=== PATIENT | male | born 1945 | race Caucasian/White ===

== ENCOUNTER 2017-02-24 20:21 | Observation (INO) ==
--- NOTE | 2017-02-24 20:32 | Emergency Department Note ---
Disposition Clinical Impression: Failure to thrive, Frequent falls Disposition: Admitted As Inpatient Condition: Good Time of Disposition: 23:55 Fall HPI - General Chief Complaint: ED Fall Stated Complaint: Freq Falls Time Seen by Provider: 02/24/17 20:25 Source: patient, EMS Mode of arrival: EMS Limitations: age Nursing Notes Reviewed: Yes Vital Signs Reviewed: Yes - History of Present Illness HPI Narrative: Patient presents to ED via EMS from home with the complaint of multiple falls. Patient is a relatively poor historian but is able to state that he has been falling more frequently than usual over the past couple of days. States that he has fallen 3 times today. Has had his head, unknown loss of consciousness. Complaining of posterior headache, neck pain, lower thoracic and upper lumbar pain. He states that he is supposed to use a walker, but he does not like using it, but he will now. Also complaining of right-sided rib pain. No vomiting or other associated abdominal pain. Noncontributory for medical history - Related Data Home Medications Medication Instructions Recorded Confirmed Albuterol Sulfate [Albuterol 2 puff IH Q6HR 03/07/15 03/07/15 Inhaler] Aspirin 325 mg PO DAILY PRN 03/07/15 03/07/15 Atorvastatin [Lipitor] 40 mg PO DAILY 03/07/15 03/07/15 Budesonide/Formoterol Fumarate 2 puff IH BID 03/07/15 03/07/15 [Symbicort 160-4.5 Mcg Inhaler] Gabapentin [Neurontin] 100 mg PO TID 03/07/15 03/07/15 Metoprolol XL (24 HR) Succ [Toprol 25 mg PO DAILY 03/07/15 03/07/15 XL] Naproxen [Naprosyn] 500 mg PO BID PRN 03/07/15 03/07/15 Omeprazole [PriLOSEC] 20 mg PO DAILY 03/07/15 03/07/15 Tamsulosin [Flomax] 0.4 mg PO DAILY 03/07/15 03/07/15 Tiotropium [Spiriva] 1 - 2 puff IH DAILY 03/07/15 03/07/15 Previous Rx's Medication Instructions Recorded Cefuroxime PO [Ceftin] 500 mg PO Q12HR 5 Days 03/10/15 HYDROcodone/Acet 5/325 mg [[place] 1 tab PO TID PRN #20 tablet 03/10/15 5-325 mg] Ipratropium/Albuterol Neb [Duoneb] 3 ml IH [id number] inhsol 03/10/15 Fluticasone Propionate Nasal 2 spray NS DAILY #1 bottle 07/12/15 [Flonase] Amoxicillin 875 mg PO BID #20 tablet 09/10/15 DiphenhydraMINE [Benadryl] 25 mg PO Q8HR #21 capsule 12/02/15 methylPREDNISolone [Medrol] 4 mg PO DAILY 6 Days 12/02/15 Bacitracin OINT [Ak-Tracin] 1 appl TP BID #56 g 02/02/16 traMADol [Ultram] 50 mg PO TID #10 tablet 03/27/16 Albuterol Sulfate [Albuterol 1 - 2 puff IH Q6HR #1 hfa.aer.ad 08/10/16 Inhaler] Azithromycin [Azithromycin 6-Tab 250 mg PO PER PKG DI #6 tab 08/10/16 Pack] Allergies Allergy/AdvReac Type Severity Reaction Status Date / Time No Known Allergies Allergy Verified 02/07/17 15:47 Constitutional: Reports: weakness (general). Denies: fever Cardiovascular: Reports: chest pain (2 days ago, gone now) Respiratory: Denies: dyspnea Gastrointestinal: Denies: abdominal pain, nausea, vomiting, diarrhea Musculoskeletal: Reports: as per HPI, back pain Integumentary: Denies: rash Neurological: Reports: headache, weakness (general ), abnormal gait (chronic ) Fall PMH - Past Medical History Medical history: Reports: CHF, COPD, coronary artery disease, GERD, hyperlipidemia, hypertension, peripheral artery disease, other Surgical history: Reports: angioplasty/stent Psychiatric history: Reports: no psych history - Social History Smoking Status: Former smoker Alcohol use: Reports: none Drug use: Reports: none Physical Exam - General Limitations: no limitations General appearance: alert, in no apparent distress - Head Head exam: atraumatic, normocephalic, normal inspection, other (Cervical kyphosis, no obvious hematoma, no raccoon eyes or Diaz sign) - Eye Eye exam: Present: normal appearance, PERRL, EOMI - ENT ENT exam: normal exam, normal oropharynx, mucous membranes moist - Neck Neck exam: Present: tenderness (midline, diffuse) - Chest Chest inspection: Present: symmetric chest wall rise, tenderness (Right lateral ribs). Absent: normal inspection - Respiratory Respiratory exam: Present: normal lung sounds bilaterally - Cardiovascular Cardiovascular exam: Present: regular rate, normal rhythm, normal heart sounds - Abdominal Exam Abdominal exam: Present: soft, Non-Tender. Absent: tenderness, distention, guarding, rebound - Extremities Exam Extremities exam: Present: normal inspection, full ROM. Absent: tenderness, pedal edema - Expanded Lower Extremity Exam Hip/Pelvis exam: Present: normal inspection, full ROM Upper leg exam: Present: normal inspection, full ROM Knee exam: Present: normal inspection, full ROM Lower leg exam: Present: normal inspection, full ROM Ankle exam: Present: normal inspection, full ROM Foot/toe exam: Present: normal inspection, full ROM Neurovascular/Tendon exam: Absent: motor deficit, sensory deficit, tendon deficit - Back Exam Back exam: Present: tenderness (lower T and diffuse L spine) - Neurological Exam Neurological exam: Present: alert, oriented X3 - Skin Skin exam: Present: warm, dry, intact, normal color Course Course Narrative: 71-year-old male with frequent falls. Having had a C-spine pain, lower thoracic and lumbar pain. All 7 rib pain. We will image. Awaiting family arrival. For further history. Unknown blood thinners. Stable currently. - Reevaluation(s) Reevaluation #1: CTs are normal. Family is now present and states they are concerned that he may end up injuring himself due to the frequency of his falls. He has had a rehabilitation previously which had good effect. We will admit him overnight for social work consult and potential rehabilitation placement. Vital Signs Temperature 98.0 F 02/24/17 20:25 Pulse Rate 87 02/24/17 20:25 Respiratory Rate 14 02/24/17 20:25 Blood Pressure 145/63 02/24/17 20:25 O2 Sat by Pulse Oximetry 95 02/24/17 20:25 Temperature 98.0 F 02/24/17 20:25 Pulse Rate 75 02/24/17 23:25 Respiratory Rate 16 02/24/17 23:25 Blood Pressure 103/64 02/24/17 23:25 O2 Sat by Pulse Oximetry 94 02/24/17 23:25 Oxygen Delivery Oxygen Delivery Room Air Fall - Medical Records Medical records reviewed: Yes I reviewed the patient's medical records. - Lab Data Lab results reviewed: Yes I reviewed the patient's lab results. Result diagrams: 02/24/17 20:37 02/24/17 20:37 Lab Results 02/24/17 02/24/17 02/24/17 Range/Units 20:37 20:37 20:37 WBC 13.0 H (4.3-11.1) K/mcL RBC 4.37 (4.19-5.50) M/mcL Hgb 12.8 L (12.9-16.9) g/dL Hct 39.7 (37.5-50.1) % MCV 90.8 (83.0-100.0) fL MCH 29.3 (28.0-33.3) pg MCHC 32.2 (31.6-35.5) g/dL RDW 13.9 (11.5-14.5) % Plt Count 371 (140-400) K/mcL MPV 9.5 (9.4-12.4) fL Immature Gran % 0.4 (0-4) % Seg Neutrophils % 72.3 % Lymphocytes % 13.1 % Monocytes % 8.9 % Eosinophils % 4.8 % Basophils % 0.5 % Neutrophils # 9.4 H (1.6-8.9) K/mcL Lymphocytes # 1.7 (0.6-4.6) K/mcL Monocytes # 1.2 (0.0-1.3) K/mcL Eosinophils # 0.6 (0.0-0.6) K/mcL Basophils # 0.1 (0.0-0.2) K/mcL PT 11.5 (9.4-12.1) Seconds INR 1.1 APTT 28.5 (26.0-36.0) Seconds Sodium 146 H (136-145) mEq/L Potassium 4.0 (3.5-4.5) mEq/L Chloride 107 (98-109) mEq/L Carbon Dioxide 30 H (19-29) mEq/L BUN 29 H (8-26) mg/dL Creatinine 1.23 (0.72-1.25) mg/dL Est GFR ( Amer) > 60 (> 60) Est GFR (Non-Af Amer) 58 L (> 60) BUN/Creatinine Ratio 24 (6-26) Glucose 97 (70-99) mg/dL Calculated Osmolality 308 H (280-300) Calcium 9.5 (8.6-10.8) mg/dL Total Bilirubin 0.4 (0.2-1.2) mg/dL AST 21 (5-34) Units/L ALT 15 (0-55) Units/L Alkaline Phosphatase 105 (38-126) Units/L Troponin I (0-0.03) ng/mL Serum Total Protein 6.7 (6.0-8.3) g/dL Albumin 3.5 (3.5-5.0) g/dL Globulin 3.2 (2.4-3.5) g/dL Albumin/Globulin Ratio 1.1 (1.1-2.2) Urine Color (Yellow) Urine Clarity (Clear) Urine pH (5.0-8.0) pH Units Ur Specific [place] (1.010-1.025) Urine Protein (Neg-Trace) mg/dL Urine Glucose (UA) (Normal) mg/dL Urine Ketones (Negative) mg/dL Urine Blood (Negative) Urine Nitrite (Negative) Urine Bilirubin (Negative) Urine Urobilinogen (Normal) mg/dL Ur Leukocyte Esterase (Negative) Ur Culture Indicated? (NO) 02/24/17 02/24/17 Range/Units 20:37 22:56 WBC (4.3-11.1) K/mcL RBC (4.19-5.50) M/mcL Hgb (12.9-16.9) g/dL Hct (37.5-50.1) % MCV (83.0-100.0) fL MCH (28.0-33.3) pg MCHC (31.6-35.5) g/dL RDW (11.5-14.5) % Plt Count (140-400) K/mcL MPV (9.4-12.4) fL Immature Gran % (0-4) % Seg Neutrophils % % Lymphocytes % % Monocytes % % Eosinophils % % Basophils % % Neutrophils # (1.6-8.9) K/mcL Lymphocytes # (0.6-4.6) K/mcL Monocytes # (0.0-1.3) K/mcL Eosinophils # (0.0-0.6) K/mcL Basophils # (0.0-0.2) K/mcL PT (9.4-12.1) Seconds INR APTT (26.0-36.0) Seconds Sodium (136-145) mEq/L Potassium (3.5-4.5) mEq/L Chloride (98-109) mEq/L Carbon Dioxide (19-29) mEq/L BUN (8-26) mg/dL Creatinine (0.72-1.25) mg/dL Est GFR ( Amer) (> 60) Est GFR (Non-Af Amer) (> 60) BUN/Creatinine Ratio (6-26) Glucose (70-99) mg/dL Calculated Osmolality (280-300) Calcium (8.6-10.8) mg/dL Total Bilirubin (0.2-1.2) mg/dL AST (5-34) Units/L ALT (0-55) Units/L Alkaline Phosphatase (38-126) Units/L Troponin I 0.01 (0-0.03) ng/mL Serum Total Protein (6.0-8.3) g/dL Albumin (3.5-5.0) g/dL Globulin (2.4-3.5) g/dL Albumin/Globulin Ratio (1.1-2.2) Urine Color Yellow (Yellow) Urine Clarity Clear (Clear) Urine pH 6.0 (5.0-8.0) pH Units Ur Specific [place] 1.020 (1.010-1.025) Urine Protein Negative (Neg-Trace) mg/dL Urine Glucose (UA) Normal (Normal) mg/dL Urine Ketones Negative (Negative) mg/dL Urine Blood Negative (Negative) Urine Nitrite Negative (Negative) Urine Bilirubin Negative (Negative) Urine Urobilinogen Normal (Normal) mg/dL Ur Leukocyte Esterase Negative (Negative) Ur Culture Indicated? NO (NO) - Radiology Data Radiology results reviewed: Yes I reviewed the patient's radiology results. Cervical Spine CT 02/24/17 20:27 IMPRESSION: No acute abnormality of the cervical spine. Limited evaluation secondary to nonstandard positioning because of the patient's severe kyphosis. D/ / Griffin Hinds MD / Griffin Hinds MD Interpreting Provider: Griffin Hinds MD Head CT 02/24/17 20:27 IMPRESSION: No acute intracranial abnormality. D/ / Linwood Dowell / Linwood Dowell Interpreting Provider: Linwood Dowell Lumbar Spine CT 02/24/17 20:27 IMPRESSION: 1. No acute abnormality detected within the lumbar spine. D/ / Griffin Hinds MD / Griffin Hinds MD Interpreting Provider: Griffin Hinds MD Ribs w/Chest X-Ray 02/24/17 20:27 IMPRESSION: 1. No definite acute abnormality detected. D/ / Griffin Hinds MD / Griffin Hinds MD Interpreting Provider: Griffin Hinds MD Thoracic Spine CT 02/24/17 20:27 IMPRESSION: No definite evidence for acute fracture. D/ / Andrei Pak MD / Andrei Pak MD Interpreting Provider: Andrei Pak MD - EKG Data EKG attestation: Yes I reviewed and interpreted this EKG. EKG results narrative: Sinus rhythm, rate 77, SC interval 148, QRS 86, QTC 395, normal axis, no ischemic changes S.B.A.R. - S.B.A.R. Situation: Demographics, MOA Background: Presenting Complaint, Relevant PMH, Meds, & Allergies Assessment: Vital Signs, Course and respsone to treatment, Exam Concerns, Patient/Family Expectation, Pertinant Lab Results, Outstanding Labs Recommendation: Recommendation based on pending studies, treatments, or consults S.B.A.R. Report Given to: Dr. Pee Cortez Repor Time: 23:56 Attestation Statement - Attestation Attestation: I personally interviewed and examined this patient and my medical decision- making was reviewed with the Resident Physician, Dr. Redd. I agree with the documented findings, disposition and treatment plan as described except to the extent set forth below. Patient is a 71-year-old white male who is brought into us for evaluation of frequent falls. Patient reports that he lives at home with 3 other and his family and states that he is supposed to ambulate using a walker or his wheelchair but states that he "prefers to walk". Patient with an unsteady gait and this tends to cause him to experience frequent falls. Patient states he fell at least 3 times today and is unclear whether or not he may have lost consciousness during one of these episodes as some of them were unwitnessed. Patient also complaining of some neck pain back pain as well as right rib pain. Patient here is awake alert and oriented to person and place. Patient denies any chest pain, no shortness of breath, no diaphoresis, no nausea vomiting or reported fluid losses. Patient denies any dizziness or symptoms preceding the fall. I agree with patient's physical exam findings as documented. Patient was sent for CT imaging to rule out any injuries related to the fall. All of his imaging was within normal limits. Labs including urinalysis was also negative. Family arrived during his ED course and also expressed concern about these frequent falls, stating that he has been through rehabilitation before which did seem to help significantly. We will admit the patient for further evaluation for frequent falls as well as psych social worker consultation and physical therapy input. Patient remains hemodynamically stable at this time and agrees to admission. Case discussed with hospitalist to admit the patient for further eval and treatment.
[2017-02-24 20:45] LABS: Basophils # 0.1 K/mcL (0.0-0.2); Basophils % 0.5 %; Eosinophils # 0.6 K/mcL (0.0-0.6); Eosinophils % 4.8 %; Hematocrit 39.7 % (37.5-50.1); Hemoglobin 12.8 g/dL (12.9-16.9); Immature Granulocytes % 0.4 % (0-4); Lymphocytes # 1.7 K/mcL (0.6-4.6); Lymphocytes % 13.1 %; Mean Corpuscular HGB Conc 32.2 g/dL (31.6-35.5); Mean Corpuscular Hemoglobin 29.3 pg (28.0-33.3); Mean Corpuscular Volume 90.8 fL (83.0-100.0); Mean Platelet Volume 9.5 fL (9.4-12.4); Monocytes # 1.2 K/mcL (0.0-1.3); Monocytes % 8.9 %; Neutrophils # 9.4 K/mcL (1.6-8.9); Platelet Count 371 K/mcL (140-400); Red Blood Count 4.37 M/mcL (4.19-5.50); Red Cell Distribution Width 13.9 % (11.5-14.5); Segmented Neutrophils % 72.3 %
[2017-02-24 20:50] LABS: INR 1.1; Prothrombin Time 11.5 Seconds (9.4-12.1)
[2017-02-24 20:53] LABS: Activated Partial Thrombo Time 28.5 Seconds (26.0-36.0)
[2017-02-24 21:00] LABS: Alanine Aminotransferase 15 Units/L (0-55); Albumin 3.5 g/dL (3.5-5.0); Albumin/Globulin Ratio 1.1 (1.1-2.2); Alkaline Phosphatase 105 Units/L (38-126); Aspartate Amino Transferase 21 Units/L (5-34); BUN/Creatinine Ratio 24 (6-26); Bilirubin,Total 0.4 mg/dL (0.2-1.2); Blood Urea Nitrogen 29 mg/dL (8-26); Calcium 9.5 mg/dL (8.6-10.8); Carbon Dioxide 30 mEq/L (19-29); Chloride 107 mEq/L (98-109); Globulin 3.2 g/dL (2.4-3.5); Glucose 97 mg/dL (70-99); Osmolality,Calculated 308 (280-300); Sodium 146 mEq/L (136-145); Total Protein 6.7 g/dL (6.0-8.3); eGFR For African Americans > 60 (> 60); eGFR For Non-African Americans 58 (> 60)
[2017-02-24 23:05] LABS: Bilirubin,Urine Negative (Negative); Blood,Urine Negative (Negative); Clarity,Urine Clear (Clear); Color,Urine Yellow (Yellow); Glucose,Urine (UA) Normal (Normal); Ketones,Urine Negative (Negative); Leukocyte Esterase,Urine Negative (Negative); Nitrite,Urine Negative (Negative); Protein,Urine Negative (Neg-Trace); Urobilinogen,Urine Normal (Normal)
[2017-02-25] MEDS ORDERED: Naloxone 0.4 MG/ML INJ IVP PRN (00:06)
[2017-02-25 01:28] LABS: Basophils # 0.1 K/mcL (0.0-0.2); Basophils % 0.5 %; Eosinophils # 0.8 K/mcL (0.0-0.6); Eosinophils % 5.6 %; Hematocrit 39.6 % (37.5-50.1); Hemoglobin 12.7 g/dL (12.9-16.9); Immature Granulocytes % 0.3 % (0-4); Lymphocytes # 1.8 K/mcL (0.6-4.6); Lymphocytes % 13.1 %; Mean Corpuscular HGB Conc 32.1 g/dL (31.6-35.5); Mean Corpuscular Hemoglobin 29.4 pg (28.0-33.3); Mean Corpuscular Volume 91.7 fL (83.0-100.0); Mean Platelet Volume 9.7 fL (9.4-12.4); Monocytes # 1.2 K/mcL (0.0-1.3); Monocytes % 9.2 %; Neutrophils # 9.5 K/mcL (1.6-8.9); Platelet Count 354 K/mcL (140-400); Red Blood Count 4.32 M/mcL (4.19-5.50); Red Cell Distribution Width 13.9 % (11.5-14.5); Segmented Neutrophils % 71.3 %
--- NOTE | 2017-02-25 01:28 | Internal Med History&Physical ---
Date of Encounter: 02/25/17 Time of Encounter: 01:00 Assessment and Plan (1) Frequent falls Current visit: Yes Status: Acute Patient with recurrent falls. Concern for presyncope. We will check orthostatics. Also check carotid Dopplers and 2-D echocardiogram. Physical therapy. May need placement to skilled rehabilitation or home health. Moderate risk for complications. (2) COPD (chronic obstructive pulmonary disease) Current visit: Yes Status: Chronic Continue bronchodilators and O2 supplementation. Currently not in acute exacerbation. Qualifiers: COPD type: chronic bronchitis Chronic bronchitis type: unspecified Qualified Code(s): J42 - Unspecified chronic bronchitis (3) Hypertension Current visit: Yes Status: Chronic Monitor blood pressure. Continue home medications. Qualifiers: Hypertension type: essential hypertension Qualified Code(s): I10 - Essential (primary) hypertension (4) Coronary artery disease Current visit: Yes Status: Chronic No chest pain at this time. Continue home medications Qualifiers: Coronary Disease-Associated Artery/Lesion type: eek artery [place] vs. transplanted heart: eek heart Associated angina: without angina Qualified Code(s): I25.10 - Atherosclerotic heart disease of eek coronary artery without angina pectoris Internal Medicine - H&P: HPI Chief complaint: Recurrent falls Admitted From: Emergency Dept Plans for Post Hospital Care: Transfer Custodial Facility History of present illness: Mr. Fernandes is a 71 year old male patient with a history of coronary artery disease, peripheral artery disease, hypertension, congestive heart failure, COPD who was brought to the ED with complaints of multiple falls over the past couple of days. Patient apparently had fallen 3 times yesterday. Unclear if he had any loss of consciousness. Presently, the patient complains of pain in his back and along his bilateral lower ribs. He says initially he fell on his back and injured himself. He denies any nausea or vomiting. No recent hospitalization. Denies any chest pain or shortness of breath. Patient had been seen in the ER twice before in the past couple of months for similar complaints. No blurred vision. No focal weakness or numbness. No recent medication changes. Of note, the patient is supposed to use a walker but he does not use it so far. This could be contributing to his recurrent falls. Past Med Surg Social Fam HX - Past Medical History Source: old records reviewed Medical history: CHF, COPD, coronary artery disease, GERD, hyperlipidemia, hypertension, peripheral artery disease, other Psychiatric history: no psych history - Past Surgical History Surgical History: angioplasty/stent - Social History Smoking Status: Former smoker Smokeless Tobacco Status: No Alcohol use: none Drug use: none - Family History Sister History Unknown: Yes Adopted: No Living Status: Hx Family Cancer: Yes Internal Medicine - H&P: Meds Albuterol Sulfate [Albuterol Inhaler] 2 puff IH Q6HR 03/07/15 [History] Aspirin 325 mg PO DAILY PRN 03/07/15 [History] Atorvastatin [Lipitor] 40 mg PO DAILY 03/07/15 [History] Budesonide/Formoterol Fumarate [Symbicort 160-4.5 Mcg Inhaler] 2 puff IH BID 09/20 [History] Gabapentin [Neurontin] 100 mg PO TID 03/07/15 [History] Metoprolol XL (24 HR) Succ [Toprol XL] 25 mg PO DAILY 03/07/15 [History] Naproxen [Naprosyn] 500 mg PO BID PRN 03/07/15 [History] Omeprazole [PriLOSEC] 20 mg PO DAILY 03/07/15 [History] Tamsulosin [Flomax] 0.4 mg PO DAILY 03/07/15 [History] Tiotropium [Spiriva] 1 - 2 puff IH DAILY 03/07/15 [History] Cefuroxime PO [Ceftin] 500 mg PO Q12HR 5 Days 03/10/15 [Rx] HYDROcodone/Acet 5/325 mg [[place] 5-325 mg] 1 tab PO TID PRN #20 tablet 03/10/15 [Rx] Ipratropium/Albuterol Neb [Duoneb] 3 ml IH [id number] inhsol 03/10/15 [Rx] Fluticasone Propionate Nasal [Flonase] 2 spray NS DAILY #1 bottle 07/12/15 [Rx] Amoxicillin 875 mg PO BID #20 tablet 09/10/15 [Rx] DiphenhydraMINE [Benadryl] 25 mg PO Q8HR #21 capsule 12/02/15 [Rx] methylPREDNISolone [Medrol] 4 mg PO DAILY 6 Days 12/02/15 [Rx] Bacitracin OINT [Ak-Tracin] 1 appl TP BID #56 g 02/02/16 [Rx] traMADol [Ultram] 50 mg PO TID #10 tablet 03/27/16 [Rx] Albuterol Sulfate [Albuterol Inhaler] 1 - 2 puff IH Q6HR #1 hfa.aer.ad 08/10/16 [Rx] Azithromycin [Azithromycin 6-Tab Pack] 250 mg PO PER PKG DI #6 tab 08/10/16 [Rx] Allergies No Known Allergies Allergy (Verified 02/07/17 15:47) All Systems PM: A 10-system review of systems was performed and is negative for pertinent findings except as documented above in the HPI. - Constitutional Constitutional: falls, no chills, no fever(s), no night sweats - EENT Eyes: no change in vision, no discharge, no pain, no photophobia Ears: no ear discharge, no ear pain, no tinnitus Nose, mouth and throat: no dysphagia, no nasal discharge, no neck pain, no sore throat - Cardiovascular Cardiovascular ROS IM: no chest pain, no diaphoresis, no dyspnea, no lightheadedness, no palpitations, no syncope - Respiratory Respiratory: no cough, no dyspnea, no wheezing, no excessive phlegm production - Gastrointestinal Gastrointestinal: no abdominal pain, no diarrhea, no hematemesis, no hematochezia, no melena, no nausea, no vomiting - Musculoskeletal Musculoskeletal ROS IM: no numbness, no tingling - Integumentary Integumentary IM: no rash, no unusual bruising - Neurological Neurological ROS: no confusion, no convulsions, no focal weakness, no numbness, no tingling, no tremor(s) - Hematologic/Lymphatic Hematologic/Lymphatic: no easy bruising - Constitutional Vitals: Temp Pulse Resp BP Pulse Ox 98.0 F 75 18 119/60 96 02/24/17 20:25 02/24/17 23:25 02/25/17 00:12 02/25/17 00:12 02/25/17 01:00 General appearance: Present: cooperative, A&O X 2, answers questions appropriately - Eye Eye exam: Present: EOMI, PERRL, conjuntiva pink, sclera anicteric - Neck Neck exam general surgery: Present: supple, trachea midline. Absent: lymphadenopathy - Respiratory Respiratory exam: Present: chest wall tenderness (In the right and left lateral lower rib region), CTAB. Absent: accessory muscle use, rales, rhonchi, wheezes - Cardiovascular Cardiovascular exam: Present: RRR, +S1, +S2, systolic murmur. Absent: diastolic murmur, gallop, rubs - GI/Abdominal GI/Abdominal exam: Present: normal bowel sounds, soft, no peritoneal signs. Absent: distended, tenderness - Extremities Exam Extremities exam: Present: warm, radial pulses palpable and symetrical. Absent : calf tenderness, cyanotic, pedal edema - Neurological Exam Neurological exam: Present: alert, CN II-XII intact, no focal deficits, strengths equal and symetr throughout. Absent: facial droop, speech deficit - Skin Skin exam: Present: dry, intact Additional comments: Ecchymosis noted on right upper back over the lower rib region Internal Med - H&P Results - Labs CBC & Chem 7: 02/24/17 20:37 02/24/17 20:37 - EKG Data -: EKG Interpreted by Myself EKG shows normal: sinus rhythm - EKG Data Interpretation IM: normal EKG - Impressions Impressions Cervical Spine CT 02/24/17 20:27 IMPRESSION: No acute abnormality of the cervical spine. Limited evaluation secondary to nonstandard positioning because of the patient's severe kyphosis. D/ / Griffin Hinds MD / Griffin Hinds MD Interpreting Provider: Griffin Hinds MD Head CT 02/24/17 20:27 IMPRESSION: No acute intracranial abnormality. D/ / Linwood Dowell / Linwood Dowell Interpreting Provider: Linwood Dowell Lumbar Spine CT 02/24/17 20:27 IMPRESSION: 1. No acute abnormality detected within the lumbar spine. D/ / Griffin Hinds MD / Griffin Hinds MD Interpreting Provider: Griffin Hinds MD Ribs w/Chest X-Ray 02/24/17 20:27 IMPRESSION: 1. No definite acute abnormality detected. D/ / Griffin Hinds MD / Griffin Hinds MD Interpreting Provider: Griffin Hinds MD Thoracic Spine CT 02/24/17 20:27 IMPRESSION: No definite evidence for acute fracture. D/ / Andrei Pak MD / Andrei Pak MD Interpreting Provider: Andrei Pak MD
[2017-02-25 01:42] LABS: BUN/Creatinine Ratio 27 (6-26); Blood Urea Nitrogen 27 mg/dL (8-26); Calcium 9.2 mg/dL (8.6-10.8); Carbon Dioxide 32 mEq/L (19-29); Chloride 106 mEq/L (98-109); Glucose 93 mg/dL (70-99); Osmolality,Calculated 301 (280-300); Potassium 3.5 mEq/L (3.5-4.5); Sodium 143 mEq/L (136-145); eGFR For African Americans > 60 (> 60); eGFR For Non-African Americans > 60 (> 60)
[2017-02-25] MEDS ORDERED: Acetaminophen 325 MG TABLET PO PRN (01:47)
[2017-02-25] MEDS ORDERED: Ipratropium/Albuterol Neb 3 ML IH PRN (01:47)
[2017-02-25] MEDS ORDERED: *HR* HYDROcodone/Acet 5/325 mg TABLET PO PRN (01:48)
[2017-02-25] MEDS ORDERED: 0.9 % Sodium Chloride 1,000 ML IVC SCH (02:00)
[2017-02-25] MEDS: *HR* Heparin 5,000 UNIT/ML VIAL SQ SCH ×2 (04:55→17:14)
--- NOTE | 2017-02-25 18:33 | Internal Med Progress Note ---
Date of Encounter: 02/25/17 Time of Encounter: 18:31 - Assessment and plan (1) Frequent falls Current Visit: Yes Status: Acute (2) COPD (chronic obstructive pulmonary disease) Current Visit: Yes Status: Chronic Qualifiers: COPD type: chronic bronchitis Chronic bronchitis type: unspecified Qualified Code(s): J42 - Unspecified chronic bronchitis (3) Coronary artery disease Current Visit: Yes Status: Chronic Qualifiers: Coronary Disease-Associated Artery/Lesion type: [place] artery [place] vs. transplanted heart: [place] heart Associated angina: without angina Qualified Code(s): I25.10 - Atherosclerotic heart disease of [place] coronary artery without angina pectoris (4) Hypertension Current Visit: Yes Status: Chronic Qualifiers: Hypertension type: essential hypertension Qualified Code(s): I10 - Essential (primary) hypertension - Subjective Interval history: Mr. Gregorio Fernandes is a 71-year-old male who looks much older than his age. He came in due to multiple falls at home and he had non-contrast CT head holistic spine and it did show any fractures on neurologically significant dislocation. Apparently he has been having this problem for a while and did a few years back he had detailed workup including MRI of the brain and ultrasound of the carotid and echocardiogram is side of the test. None were proven, occlusive. Echo showed an EF of 50% and MRI brain showed diminished diamond matter. However considering his age it could be related to age-related loss of white matter. He does not have any classical symptoms of normal. Pressure hydrocephalus however he says his legs give up and he denies any headache or dizziness or visual changes. Patient has been seen by a semiconductor packages tester in the past and had Holter monitor. He plans to go to skilled nursing. - Constitutional Vitals: Temp Pulse Resp BP Pulse Ox 97.6 F 72 18 150/74 97 02/25/17 14:37 02/25/17 14:37 02/25/17 14:37 02/25/17 14:37 02/25/17 14:37 General appearance: Present: cooperative, A&O X 2, answers questions appropriately - Head Head exam: Present: atraumatic, normocephalic - Eye Eye exam: Present: PERRL, conjuntiva pink, sclera anicteric Pupils: Present: PERRL - Neck Neck exam general surgery: Present: supple, trachea midline. Absent: lymphadenopathy - Respiratory Respiratory exam: Present: CTAB. Absent: accessory muscle use, rales, rhonchi, wheezes - Cardiovascular Cardiovascular exam: Present: RRR, +S1, +S2. Absent: diastolic murmur, gallop, rubs, systolic murmur - GI/Abdominal GI/Abdominal exam: Present: normal bowel sounds, soft, no peritoneal signs. Absent: distended, tenderness - Extremities Exam Extremities exam: Present: warm, radial pulses palpable and symetrical. Absent : calf tenderness, cyanotic, pedal edema - Neurological Exam Neurological exam: Present: CN II-XII intact, oriented X3, no focal deficits. Absent: pronater drift, facial droop, speech deficit Additional comments: No pronator drift plantars downward bilaterally gait deferred as physical therapy to assess him - Skin Skin exam: Present: dry, intact Internal Medicine: Result - Labs CBC & Chem 7: 02/25/17 01:14 02/25/17 01:14 Labs: Short CBC 02/25/17 Range/Units 01:14 WBC 13.3 H (4.3-11.1) K/mcL Hgb 12.7 L (12.9-16.9) g/dL Hct 39.6 (37.5-50.1) % Plt Count 354 (140-400) K/mcL Neutrophils # 9.5 H (1.6-8.9) K/mcL BMP 02/25/17 01:14 Sodium 143 Potassium 3.5 Chloride 106 Carbon Dioxide 32 H BUN 27 H Creatinine 1.00 Glucose 93 Calcium 9.2 - ABG Interpretation ABG results: PT/INR, D-dimer PT 11.5 Seconds (9.4-12.1) 02/24/17 20:37 Consult Discharge Plan - Plan Referrals: Juan Cortes MD [Primary Care Provider] -
[2017-02-26 01:14] LABS: Basophils % 0.7 %; Eosinophils % 8.8 %; Hemoglobin 11.4 g/dL (12.9-16.9); Immature Granulocytes % 0.2 % (0-4); Lymphocytes # 1.9 K/mcL (0.6-4.6); Lymphocytes % 20.2 %; Mean Corpuscular HGB Conc 32.6 g/dL (31.6-35.5); Mean Corpuscular Volume 92.1 fL (83.0-100.0); Mean Platelet Volume 9.8 fL (9.4-12.4); Monocytes % 9.2 %; Neutrophils # 5.6 K/mcL (1.6-8.9); Platelet Count 322 K/mcL (140-400); Red Cell Distribution Width 14.2 % (11.5-14.5); Segmented Neutrophils % 60.9 %
[2017-02-26 01:15] LABS: Basophils # 0.1 K/mcL (0.0-0.2); Eosinophils # 0.8 K/mcL (0.0-0.6); Monocytes # 0.9 K/mcL (0.0-1.3)
[2017-02-26 01:32] LABS: Alanine Aminotransferase 14 Units/L (0-55); Albumin 2.8 g/dL (3.5-5.0); Alkaline Phosphatase 88 Units/L (38-126); Aspartate Amino Transferase 19 Units/L (5-34); BUN/Creatinine Ratio 22 (6-26); Bilirubin,Total 0.2 mg/dL (0.2-1.2); Blood Urea Nitrogen 24 mg/dL (8-26); Calcium 8.6 mg/dL (8.6-10.8); Carbon Dioxide 28 mEq/L (19-29); Chloride 109 mEq/L (98-109); Globulin 2.7 g/dL (2.4-3.5); Glucose 95 mg/dL (70-99); Osmolality,Calculated 298 (280-300); Potassium 3.9 mEq/L (3.5-4.5); Sodium 142 mEq/L (136-145); Total Protein 5.5 g/dL (6.0-8.3); eGFR For African Americans > 60 (> 60); eGFR For Non-African Americans > 60 (> 60)
[2017-02-26] MEDS: *HR* Heparin 5,000 UNIT/ML VIAL SQ SCH ×2 (05:25→18:01)
--- NOTE | 2017-02-26 12:08 | Carotid Imaging Report ---
Carotid Duplex Patient Name:Gregorio Fernandes Order Number:[id number] Procedure Date:02/25/2017 Date:4Age:71 yrs Gender:Male Lt BP:101 / 63 mmHg Rt.BP:101 / 68 mmHgHeart Rate: Location:[facility] Room #: [facility] Etl Bi Developer:Valeria Marni Referring MD:Cosme Glasgow MD medical record retrieval specialist:Juan Cortes MD Reading MD:Neville Soler MD , FACS Primary Indications:Presyncope Risk Factors Yes/No Hx of CAD/PTCA Yes Impressions: Findings: Bilateral carotid systems are essentially normal. Recommendations: After imaging the patient returned to their room. Findings Carotid Duplex: Flowers scale imaging combined with Doppler flow analysis suggests normal findings bilaterally. Right: The right proximal common carotid artery has a PSV of 80 cm/s and a EDV of 17 cm/s. The right mid common carotid artery has a PSV of 84 cm/s and a EDV of 20 cm/s. The right distal common carotid artery has a PSV of 89 cm/s and a EDV of 29 cm/s. The right bifurcation has a PSV of 46 cm/s and a EDV of 2 cm/s. The right proximal internal carotid artery has a PSV of 96 cm/s and a EDV of 18 cm/s. The right mid internal carotid artery has a PSV of 83 cm/s and a EDV of 28 cm/s. The right distal internal carotid artery has a PSV of 80 cm/s and a EDV of 31 cm/s. The right eca has a PSV of 112 cm/s and a EDV of 11 cm/s. The right vertebral artery has a PSV of 46 cm/s and a EDV of 10 cm/s. Left: The left proximal common carotid artery has a PSV of 84 cm/s and a EDV of 18 cm/s. The left mid common carotid artery has a PSV of 96 cm/s and a EDV of 25 cm/s. The left distal common carotid artery has a PSV of 92 cm/s and a EDV of 20 cm/s. The left bifurcation has a PSV of 73 cm/s and a EDV of 18 cm/s. The left proximal internal carotid artery has a PSV of 69 cm/s and a EDV of 23 cm/s. The left mid internal carotid artery has a PSV of 85 cm/s and a EDV of 28 cm/s. The left distal internal carotid artery has a PSV of 99 cm/s and a EDV of 37 cm/s. The left eca has a PSV of 98 cm/s and a EDV of 9 cm/s. The left vertebral artery has a PSV of 67 cm/s and a EDV of 24 cm/s. Prior Study: No prior study available for comparison. Carotid Results Right PSV EDV Assessment Proximal CCA 80 17 Normal Mid CCA 84 20 Normal Distal CCA 89 29 Normal Bifurcation 46 2 Normal Proximal ICA 96 18 Normal Mid ICA 83 28 Normal Distal ICA 80 31 Normal ECA 112 11 Normal Vertebral Artery 46 10 Normal Left PSV EDV Assessment Proximal CCA 84 18 Normal Mid CCA 96 25 Normal Distal CCA 92 20 Normal Bifurcation 73 18 Normal Proximal ICA 69 23 Normal Mid ICA 85 28 Normal Distal ICA 99 37 Normal ECA 98 9 Normal Vertebral Artery 67 24 Normal Ratio's Right ICA/CCA Ratio: 1.14 ICA/CCA Values: 96/84 Left ICA/CCA Ratio: 1.03 ICA/CCA Values: 99/96 Updated by Neville Soler MD, FACS on 02/26/2017 12:01:15 PM Neville Soler MD electronically signed on 02/26/2017 12:02:40 PM with status of Final
--- NOTE | 2017-02-26 13:57 | Electrocardiograph Report ---
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
--- NOTE | 2017-02-26 16:05 | Internal Med Progress Note ---
Date of Encounter: 02/26/17 Time of Encounter: 16:03 - Assessment and plan (1) Frequent falls Current Visit: Yes Status: Acute (2) COPD (chronic obstructive pulmonary disease) Current Visit: Yes Status: Chronic Qualifiers: COPD type: chronic bronchitis Chronic bronchitis type: unspecified Qualified Code(s): J42 - Unspecified chronic bronchitis (3) Coronary artery disease Current Visit: Yes Status: Chronic Qualifiers: Coronary Disease-Associated Artery/Lesion type: [place] artery [place] vs. transplanted heart: [place] heart Associated angina: without angina Qualified Code(s): I25.10 - Atherosclerotic heart disease of [place] coronary artery without angina pectoris (4) Hypertension Current Visit: Yes Status: Chronic Qualifiers: Hypertension type: essential hypertension Qualified Code(s): I10 - Essential (primary) hypertension - Subjective Interval history: Mr. Gregorio Fernandes is a 71-year-old male who looks much older than his age. He came in due to multiple falls at home and he had non-contrast CT head holistic spine and it did show any fractures on neurologically significant dislocation. Apparently he has been having this problem for a while and did a few years back he had detailed workup including MRI of the brain and ultrasound of the carotid and echocardiogram is side of the test. None were proven, occlusive. Echo showed an EF of 50% and MRI brain showed diminished diamond matter. However considering his age it could be related to age-related loss of white matter. He does not have any classical symptoms of normal. Pressure hydrocephalus however he says his legs give up and he denies any headache or dizziness or visual changes. Patient has been seen by a music adapter in the past and had Holter monitor. He plans to go to senior living. 02/26 patient is more awake today wanting to go home. Family was available to discuss the case. According to son he has been falling almost every day. It seems like it sent old problem which has been worked up in the past also. Today we did MRI of the brain and echocardiogram of the heart ultrasound of the carotid and all appeared quite unremarkable. His neurological examination is also nonfocal. He has been recommended in the past to use walker which apparently he does not like to use. community outreach worker was available and discuss the case. Considering the fact that he has been falling so frequently causing quite few months musculoskeletal problems could be reasonable to send him to acute rehabilitation. Awaiting bed placement. May benefit with outpatient neurology consult. - Constitutional Vitals: Temp Pulse Resp BP Pulse Ox 97.8 F 73 16 117/70 95 02/26/17 15:31 02/26/17 15:31 02/26/17 15:31 02/26/17 15:31 02/26/17 15:31 General appearance: Present: cooperative, A&O X 2, answers questions appropriately - Head Head exam: Present: atraumatic, normocephalic - Eye Eye exam: Present: PERRL, conjuntiva pink, sclera anicteric Pupils: Present: PERRL - Neck Neck exam general surgery: Present: supple, trachea midline. Absent: lymphadenopathy - Respiratory Respiratory exam: Present: CTAB. Absent: accessory muscle use, rales, rhonchi, wheezes - Cardiovascular Cardiovascular exam: Present: RRR, +S1, +S2. Absent: diastolic murmur, gallop, rubs, systolic murmur - GI/Abdominal GI/Abdominal exam: Present: normal bowel sounds, soft, no peritoneal signs. Absent: distended, tenderness - Extremities Exam Extremities exam: Present: warm, radial pulses palpable and symetrical. Absent : calf tenderness, cyanotic, pedal edema - Neurological Exam Neurological exam: Present: CN II-XII intact, oriented X3, no focal deficits. Absent: pronater drift, facial droop, speech deficit - Skin Skin exam: Present: dry, intact Internal Medicine: Result - Labs CBC & Chem 7: 02/26/17 01:02 02/26/17 01:02 Labs: Short CBC 02/26/17 Range/Units 01:02 WBC 9.2 (4.3-11.1) K/mcL Hgb 11.4 L (12.9-16.9) g/dL Hct 35.0 L (37.5-50.1) % Plt Count 322 (140-400) K/mcL Neutrophils # 5.6 (1.6-8.9) K/mcL BMP 02/26/17 01:02 Sodium 142 Potassium 3.9 Chloride 109 Carbon Dioxide 28 BUN 24 Creatinine 1.07 Glucose 95 Calcium 8.6 Liver Function 02/26/17 Range/Units 01:02 Total Bilirubin 0.2 (0.2-1.2) mg/dL AST 19 (5-34) Units/L ALT 14 (0-55) Units/L Alkaline Phosphatase 88 (38-126) Units/L Albumin 2.8 L (3.5-5.0) g/dL - ABG Interpretation ABG results: PT/INR, D-dimer PT 11.5 Seconds (9.4-12.1) 02/24/17 20:37 - Impressions Impressions Brain MRI 02/26/17 09:44 IMPRESSION: No acute intracranial abnormality. Moderate generalized cerebral and cerebellar volume loss. D/ / 02/26/2017 11:42:37 Dania Pat MD / eunice Interpreting Provider: Danai Pat MD Consult Discharge Plan - Plan Referrals: Juan Cortes MD [Primary Care Provider] -
[2017-02-26] MEDS: Furosemide 20 MG TABLET PO SCH (22:04)
[2017-02-26] MEDS: Aspirin 81 MG TAB.CHEW PO SCH (22:04)
[2017-02-27] MEDS: *HR* Heparin 5,000 UNIT/ML VIAL SQ SCH (05:43)
[2017-02-27 05:46] LABS: Basophils # 0.1 K/mcL (0.0-0.2); Basophils % 0.4 %; Eosinophils # 0.8 K/mcL (0.0-0.6); Eosinophils % 6.8 %; Hematocrit 41.3 % (37.5-50.1); Immature Granulocytes % 0.4 % (0-4); Lymphocytes # 1.5 K/mcL (0.6-4.6); Lymphocytes % 13.1 %; Mean Corpuscular Hemoglobin 29.1 pg (28.0-33.3); Mean Corpuscular Volume 91.2 fL (83.0-100.0); Mean Platelet Volume 9.5 fL (9.4-12.4); Monocytes % 8.7 %; Neutrophils # 7.9 K/mcL (1.6-8.9); Platelet Count 368 K/mcL (140-400); Red Blood Count 4.53 M/mcL (4.19-5.50); Segmented Neutrophils % 70.6 %
[2017-02-27 05:57] LABS: Alanine Aminotransferase 17 Units/L (0-55); Alkaline Phosphatase 105 Units/L (38-126); Aspartate Amino Transferase 18 Units/L (5-34); BUN/Creatinine Ratio 19 (6-26); Bilirubin,Total 0.4 mg/dL (0.2-1.2); Blood Urea Nitrogen 25 mg/dL (8-26); Calcium 9.3 mg/dL (8.6-10.8); Carbon Dioxide 27 mEq/L (19-29); Chloride 106 mEq/L (98-109); Globulin 3.4 g/dL (2.4-3.5); Glucose 115 mg/dL (70-99); Osmolality,Calculated 297 (280-300); Sodium 141 mEq/L (136-145); eGFR For African Americans > 60 (> 60); eGFR For Non-African Americans 54 (> 60)
[2017-02-27 05:58] LABS: Albumin 3.4 g/dL (3.5-5.0); Total Protein 6.8 g/dL (6.0-8.3)
[2017-02-27 05:59] LABS: Hemoglobin 13.2 g/dL (12.9-16.9)
[2017-02-27] MEDS ORDERED: Loratadine 10 MG TABLET PO SCH (09:00)
[2017-02-27] MEDS: Aspirin 81 MG TAB.CHEW PO SCH (09:33)
[2017-02-27] MEDS: Furosemide 20 MG TABLET PO SCH (09:33)
--- NOTE | 2017-02-27 14:22 | Discharge Summary ---
Date of Encounter: 02/27/17 Time of Encounter: 12:30 - Discharge Diagnosis (1) Frequent falls Priority: Primary Status: Acute (2) CHF (congestive heart failure) Priority: Secondary Status: Chronic Qualifiers: Congestive heart failure type: combined Congestive heart failure chronicity : chronic Qualified Code(s): I50.42 - Chronic combined systolic (congestive) and diastolic (congestive) heart failure (3) PAD (peripheral artery disease) Priority: Secondary Status: Chronic (4) COPD (chronic obstructive pulmonary disease) Priority: Secondary Status: Chronic Qualifiers: COPD type: chronic bronchitis Chronic bronchitis type: unspecified Qualified Code(s): J42 - Unspecified chronic bronchitis (5) Hypertension Priority: Secondary Status: Chronic Qualifiers: Hypertension type: essential hypertension Qualified Code(s): I10 - Essential (primary) hypertension (6) Coronary artery disease Priority: Secondary Status: Chronic Qualifiers: Coronary Disease-Associated Artery/Lesion type: [place] artery [place] vs. transplanted heart: [place] heart Associated angina: without angina Qualified Code(s): I25.10 - Atherosclerotic heart disease of [place] coronary artery without angina pectoris - Discharge Medications Prescriptions: Furosemide [Lasix] 20 mg PO DAILY #30 tab Home Medications: Aspirin 81 mg PO DAILY 03/07/15 [History] Atorvastatin [Lipitor] 40 mg PO DAILY 03/07/15 [History] Omeprazole [PriLOSEC] 20 mg PO DAILY 03/07/15 [History] Tamsulosin [Flomax] 0.4 mg PO DAILY 03/07/15 [History] Loratadine [Allergy Relief] 10 mg PO DAILY 02/25/17 [History] Furosemide [Lasix] 20 mg PO DAILY #30 tab 02/27/17 [Rx] Allergies/Adverse Reactions: Allergies No Known Allergies Allergy (Verified 02/07/17 15:47) Procedures/tests Complete & Pending: Procedures Performed prior 72 hours Category Date Time Status MR head/brain wo con [MR] Routine MRI 02/26/17 09:44 Draft ECG 12 lead ECG [ECG] Routine Y 02/26/17 08:10 Completed EV carotid duplex imaging BI Routine Y 02/25/17 01:48 Completed EV echocardiogram Routine Y 02/25/17 01:48 Completed Date of admission: 02/25/17 00:09 Primary care physician: Juan Cortes MD Consults: 02/25/17 00:49 Consult to Hand Tool Lapper [CONS] Routine Reason for SW Consult: patient need home pt/ot set up 02/25/17 01:49 Consult to Occupational Therapy [CONS] Routine Comment: Evaluate, develop and implement POC Reason for Consult: Recurrent falls Consult to Physical Therapy [CONS] Routine Comment: Evaluate, develop and implement POC Reason for Consult: Recurrent falls Consult to Hand Tool Lapper [CONS] Routine Reason for SW Consult: Discharge planning Discharging clinician: Halle Banks Anticipated date of discharge: 02/27/17 - Patient Status Disposition: Transfer SNF Condition: Fair Functional capacity at discharge: uses cane/walker Overall status at discharge: patient is progressing back to baseline - Discharge Instructions Follow Up With: Juan Cortes MD [Primary Care Provider] - Additional Instructions: F/up with PCP in 2 weeks - Diet and Activity Activity: as per physical therapy Diet: low fat, low cholesterol, low salt diet Hospital course: Mr. Fernandes is a 71 year old male with the above medical problems who was admitted with generalized weakness and recurrent falls. He was noted to have mildly elevated serum creatinine and was started on IV hydration with some improvement. EKG and telemetry monitoring was normal. Carotid Doppler showed no significant stenosis bilaterally. CT head and MRI brain showed no evidence of acute stroke or trauma. Echocardiogram was done which showed 50-55% ejection fraction and mild left ventricular diastolic dysfunction. Patient remained hemodynamically stable during this admission. Physical and occupational therapy evaluation was completed and recommended placement in extended care facility for continued rehabilitation and patient is medically stable for this transfer. He was noted to have a very mild elevation in creatinine today and his diuretic is being held for 1 week after discharge. He will follow up with his PCP for further monitoring. - Time Spent with Patient Total time spent providing and/or coordinating discharge services: Greater than 30 minutes (45 min) - Constitutional Vitals: Temp Pulse Resp BP Pulse Ox 98.1 F 79 15 132/76 97 02/27/17 11:08 02/27/17 11:08 02/27/17 11:08 02/27/17 11:08 02/27/17 11:08 General appearance: Present: A&O X 2, answers questions appropriately - Respiratory Respiratory exam: Present: CTAB. Absent: accessory muscle use, rales, rhonchi, wheezes - Cardiovascular Cardiovascular exam: Present: RRR, +S1, +S2. Absent: diastolic murmur, gallop, rubs, systolic murmur
--- NOTE | 2017-02-27 14:25 | Physician Discharge Referral ---
ExtendedCare Referral Info Transfer To: [facility] Provider in Charge: Halle Banks Provider in Charge after Transfer: PCP Institutional Level of Care: Skilled - Diagnosis (1) Frequent falls Priority: Primary Status: Acute (2) CHF (congestive heart failure) Priority: Secondary Status: Chronic (3) PAD (peripheral artery disease) Priority: Secondary Status: Chronic (4) COPD (chronic obstructive pulmonary disease) Priority: Secondary Status: Chronic (5) Hypertension Priority: Secondary Status: Chronic (6) Coronary artery disease Priority: Secondary Status: Chronic Expected Duration of Placement: 3 weeks Prognosis: Fair Aware of Diagnosis: Patient, Family - Transfer Medications Prescriptions: Furosemide [Lasix] 20 mg PO DAILY #30 tab Home Medications: Aspirin 81 mg PO DAILY 03/07/15 [History] Atorvastatin [Lipitor] 40 mg PO DAILY 03/07/15 [History] Omeprazole [PriLOSEC] 20 mg PO DAILY 03/07/15 [History] Tamsulosin [Flomax] 0.4 mg PO DAILY 03/07/15 [History] Loratadine [Allergy Relief] 10 mg PO DAILY 02/25/17 [History] Furosemide [Lasix] 20 mg PO DAILY #30 tab 02/27/17 [Rx] Allergies/Adverse Reactions: Allergies No Known Allergies Allergy (Verified 02/07/17 15:47) - Respiratory Orders Smoking Cessation: Smoking cessation has been advised. For more information, call the [place] Tobacco Quit Line at 4-167-XGVDNOW. - Advance Directives Code Status: DNR-Arrest/Don't Intubate - Rehabiliation Orders Rehab Potential: Fair Rehab Orders: ROM Exercises, Evaluation for Physical Therapy, Evaluation for Occupational Therapy - Diet Orders No Added Salt (BRUNO), Cardiac CERTIFICATION: I certify that the transfer of the above named patient to an Extended Care Facility is necessary for the continuing treatment of the diagnosis listed. The above information is true and accurate reflection of patient's current condition. Confidential - Redisclosure prohibited without a patient's written consent.
[2017-02-27 15:45] VITALS: BP 112/76
== END 2017-02-27 18:07 ==
LOC: EMEROO 20:21 → 3NENU 20:21 → SUATTDRO 02-25 00:09 → 3NENU 02-25 00:24 → 3ANU 02-26 20:43
PROVIDERS: ADMIT Internal Medicine; ATTEND Internal Medicine